=== PATIENT | female | born 1960 | race African-American/Black ===

== ENCOUNTER 2017-12-01 05:52 | Inpatient (IN) ==
[2017-11-25 15:21] LABS: Basophils % 0.6 % (0.0-0.8); Eosinophils # 0.1 10*3/uL (0.0-0.87); Eosinophils % 1.8 % (0.00-10.9); Hematocrit 40.4 VOL% (35.7-47.0); Hemoglobin 13.3 GM/DL (12.0-16.0); Immature Granulocytes % 0.3 %; Immature Granulocytes Absolute 0.02 #; Lymphocytes # 1.8 10*3/uL (1.4-4.0); Lymphocytes % 27.9 % (21.3-54.2); Mean Corpuscular HGB Conc 32.9 GM/DL (32-36); Mean Corpuscular Hemoglobin 29 PG (27-34); Mean Corpuscular Volume 87.4 FL (87-102); Mean Platelet Volume 10.5 FL (9.6-12.0); Monocytes # 0.4 10*3/uL (0.11-0.8); Monocytes % 6.7 % (1.7-12.7); Neutrophils # 4.1 10*3/uL (1.4-7.4); Neutrophils % 62.7 % (38.7-73.9); Platelet Count 255 T/CUMM (130-400); Red Blood Count 4.62 MC/CUMM (3.8-5.5); Red Cell Distribution Width 14.8 % (9.3-17.3); White Blood Count 6.6 T/CUMM (4-12)
[2017-11-25 15:45] LABS: Alanine Aminotransferase 23 U/L (13-56); Albumin 4.2 G/DL (3.4-5.0); Alkaline Phosphatase 53 U/L (45-117); Aspartate Amino Transferase 18 U/L (0-37); Bilirubin,Total < 0.39 MG/DL (0.2-1.0); Blood Urea Nitrogen 17 MG/DL (7-18); Calcium 9.1 MG/DL (8.5-10.1); Glucose 102 MG/DL (74-106); Osmolality,Calculated 280.4 MOS/KG (273-304); Potassium 4.2 MMOL/L (3.5-5.1); Sodium 140 MMOL/L (136-145); Total Protein 8.4 G/DL (6.4-8.3)
[2017-12-01] MEDS ORDERED: ceFAZolin 1,000 MG VIAL ONE (06:04)
[2017-12-01] MEDS ORDERED: BUPIVACAINE 0.5% 50 ML VIAL ONE (06:21)
[2017-12-01] MEDS ORDERED: LIDOCAINE 1%/EPI INJ 20 ML VIAL ONE (06:21)
[2017-12-01] MEDS ORDERED: ISOSULFAN BLUE 5 ML VIAL SUBCUT ONE (06:22)
[2017-12-01] MEDS ORDERED: TISSUE ADHESIVE 1 EACH APPLICATOR TOP ONE (06:22)
[2017-12-01] MEDS ORDERED: ceFAZolin 1,000 MG in SYRINGE 1 EACH IV ONE (06:30)
[2017-12-01] MEDS: LACTATED RINGERS 1,000 ML IV SCH ×4 (07:15→15:02)
[2017-12-01] MEDS ORDERED: ONDANSETRON 4 MG/2 ML VIAL IV PRN (09:42)
[2017-12-01] MEDS ORDERED: PROPOFOL 200 MG/20 ML VIAL IV ONE (10:04)
[2017-12-01] MEDS ORDERED: SEVOFLURANE 1 UNIT/15 MINUTE INH ONE (10:05)
[2017-12-01] MEDS ORDERED: fentaNYL 100 MCG/2 ML VIAL ONE (10:05)
[2017-12-01] MEDS ORDERED: PHENYLEPHRINE 1 MG/10 ML SYRINGE IV ONE (10:05)
[2017-12-01] MEDS ORDERED: MIDAZOLAM 2 MG/2 ML VIAL ONE (10:05)
[2017-12-01] MEDS ORDERED: ONDANSETRON 4 MG/2 ML VIAL ONE (10:05)
[2017-12-01] MEDS ORDERED: ROCURONIUM 100 MG/10 ML VIAL IV ONE (10:06)
[2017-12-01] MEDS ORDERED: LACTATED RINGERS 1,000 ML IV ONE (10:06)
[2017-12-01] MEDS: ceFAZolin 2,000 MG in PREMIX 1 EACH IV SCH ×2 (15:51→23:15)
[2017-12-01] MEDS: HYDROmorphone 2 MG/1 ML VIAL IV PRN ×2 (16:33→21:18)
[2017-12-02] MEDS ORDERED: PANTOPRAZOLE 40 MG TABLET PO SCH (09:00)
[2017-12-02] MEDS: LACTATED RINGERS 1,000 ML IV SCH (11:25)
[2017-12-02] MEDS: HYDROmorphone 2 MG/1 ML VIAL IV PRN (18:39)
[2017-12-03 07:34] VITALS: BP 123/83
== END 2017-12-03 08:45 | disposition home health service (06) | DRG 580 ==
LOC: N.OR 05:52 → N.SDSINP 05:53 → N.3E 09:42
PROVIDERS: ADMIT Surgery; ATTEND Surgery